=== PATIENT | male | born 1970 | race Caucasian/White ===

== ENCOUNTER 2020-10-25 07:48 | Observation (INO) ==
[2020-10-25] MEDS ORDERED: 0.9 % Sodium Chloride 1,000 ML IVC ONE (08:05)
[2020-10-25] MEDS ORDERED: Isovue-370 500 ML BOTTLE IVP ONE (08:06)
[2020-10-25 08:40] LABS: Basophils # 0.1 K/mcL (0.0-0.2); Basophils % 0.6 %; Eosinophils % 0.3 %; Hemoglobin 13.3 g/dL (12.9-16.9); Immature Granulocytes % 0.4 % (0-4); Lymphocytes # 0.8 K/mcL (0.6-4.6); Lymphocytes % 8.8 %; Mean Corpuscular HGB Conc 34.1 g/dL (31.6-35.5); Mean Corpuscular Hemoglobin 30.6 pg (28.0-33.3); Mean Corpuscular Volume 89.9 fL (83.0-100.0); Mean Platelet Volume 8.8 fL (9.4-12.4); Monocytes % 10.9 %; Neutrophils # 7.1 K/mcL (1.6-8.9); Platelet Count 502 K/mcL (140-400); Red Blood Count 4.34 M/mcL (4.19-5.50); Red Cell Distribution Width 12.5 % (11.5-14.5)
[2020-10-25 09:08] LABS: Alanine Aminotransferase 49 Units/L (7-52); Albumin 4.4 g/dL (3.5-5.7); Albumin/Globulin Ratio 1.5 (1.1-2.2); Alkaline Phosphatase 85 Units/L (34-104); Aspartate Amino Transferase 27 Units/L (13-39); BUN/Creatinine Ratio 24 (6-26); Bilirubin,Direct 0.2 mg/dL (0.0-0.2); Bilirubin,Indirect 1.1 mg/dL (0.0-1.0); Bilirubin,Total 1.3 mg/dL (0.3-1.0); Blood Urea Nitrogen 27 mg/dL (6-20); Calcium 9.7 mg/dL (8.6-10.3); Carbon Dioxide 26 mEq/L (23-29); Chloride 92 mEq/L (98-107); Globulin 2.9 g/dL (2.4-3.5); Glucose 127 mg/dL (70-105); Lipase 23 Units/L (11-82); Osmolality,Calculated 279 (280-300); Potassium 3.6 mEq/L (3.5-5.1); Sodium 131 mEq/L (136-145); Total Protein 7.3 g/dL (6.4-8.9); Troponin I < 0.03 ng/mL (< 0.04); eGFR For African Americans > 60 (> 60); eGFR For Non-African Americans > 60 (> 60)
[2020-10-25] MEDS ORDERED: *HR* FentaNYL (PF) 100 MCG/2 ML VIAL IVP ONE ×2 (09:08→11:12)
[2020-10-25 11:36] LABS: Bilirubin,Urine Negative (Negative); Blood,Urine Trace (Negative); Clarity,Urine Clear (Clear); Color,Urine Yellow (Yellow); Glucose,Urine (UA) Normal (Normal); Ketones,Urine 60 mg/dL (Negative); Leukocyte Esterase,Urine Negative (Negative); Mucus,Urine Moderate per lpf (None-Few); Nitrite,Urine Negative (Negative); Protein,Urine 50 mg/dL (Neg-Trace); Specific Gravity,Urine > 1.030 (1.010-1.025); Urobilinogen,Urine Normal (Normal); WBC,Urine 0-3 per hpf (0-3)
[2020-10-25] MEDS ORDERED: Ondansetron 4 MG/2 ML VIAL IVP PRN (12:56)
[2020-10-25] MEDS ORDERED: Naloxone 0.4 MG/ML INJ IVP PRN (12:56)
[2020-10-25] MEDS ORDERED: Mag Hydrox/Al Hydrox/Simeth 30 ML UDC PO PRN (12:56)
[2020-10-25] MEDS: 0.9 % Sodium Chloride 1,000 ML IVC SCH (13:51)
[2020-10-25] MEDS: Ketorolac 30 MG/ML VIAL IVP PRN ×2 (13:55→20:10)
[2020-10-25] MEDS ORDERED: Ondansetron 4 MG/2 ML VIAL IVP ONE (15:54)
[2020-10-26] MEDS: 0.9 % Sodium Chloride 1,000 ML IVC SCH (02:11)
[2020-10-26] MEDS: Ketorolac 30 MG/ML VIAL IVP PRN ×3 (02:11→20:50)
[2020-10-26 05:44] LABS: Hematocrit 34.9 % (37.5-50.1); Hemoglobin 11.9 g/dL (12.9-16.9); Mean Corpuscular HGB Conc 34.1 g/dL (31.6-35.5); Mean Corpuscular Hemoglobin 30.9 pg (28.0-33.3); Mean Corpuscular Volume 90.6 fL (83.0-100.0); Mean Platelet Volume 9.1 fL (9.4-12.4); Platelet Count 456 K/mcL (140-400); Red Blood Count 3.85 M/mcL (4.19-5.50); Red Cell Distribution Width 12.7 % (11.5-14.5); White Blood Count 10.5 K/mcL (4.3-11.1)
[2020-10-26 06:01] LABS: Alanine Aminotransferase 38 Units/L (7-52); Albumin 3.8 g/dL (3.5-5.7); Albumin/Globulin Ratio 1.4 (1.1-2.2); Alkaline Phosphatase 79 Units/L (34-104); Aspartate Amino Transferase 21 Units/L (13-39); BUN/Creatinine Ratio 31 (6-26); Blood Urea Nitrogen 35 mg/dL (6-20); Calcium 8.8 mg/dL (8.6-10.3); Carbon Dioxide 27 mEq/L (23-29); Chloride 96 mEq/L (98-107); Globulin 2.8 g/dL (2.4-3.5); Glucose 106 mg/dL (70-105); Osmolality,Calculated 286 (280-300); Potassium 3.4 mEq/L (3.5-5.1); Sodium 134 mEq/L (136-145); Total Protein 6.6 g/dL (6.4-8.9); eGFR For African Americans > 60 (> 60); eGFR For Non-African Americans > 60 (> 60)
[2020-10-26] MEDS: Acetaminophen 325 MG TABLET PO PRN (19:04)
[2020-10-26] MEDS ORDERED: Melatonin 3 MG TABLET PO PRN (19:10)
[2020-10-26] MEDS: Gabapentin 300 MG CAPSULE PO SCH (20:48)
[2020-10-27 05:47] LABS: Hematocrit 37.9 % (37.5-50.1); Hemoglobin 12.6 g/dL (12.9-16.9); Mean Corpuscular HGB Conc 33.2 g/dL (31.6-35.5); Mean Corpuscular Hemoglobin 30.6 pg (28.0-33.3); Mean Platelet Volume 8.9 fL (9.4-12.4); Platelet Count 514 K/mcL (140-400); Red Blood Count 4.12 M/mcL (4.19-5.50); Red Cell Distribution Width 12.7 % (11.5-14.5); White Blood Count 10.8 K/mcL (4.3-11.1)
[2020-10-27 07:57] LABS: BUN/Creatinine Ratio 21 (6-26); Blood Urea Nitrogen 24 mg/dL (6-20); Calcium 9.2 mg/dL (8.6-10.3); Carbon Dioxide 28 mEq/L (23-29); Chloride 98 mEq/L (98-107); Glucose 99 mg/dL (70-105); Osmolality,Calculated 284 (280-300); Potassium 3.6 mEq/L (3.5-5.1); Sodium 135 mEq/L (136-145); eGFR For African Americans > 60 (> 60); eGFR For Non-African Americans > 60 (> 60)
[2020-10-27] MEDS: Acetaminophen 325 MG TABLET PO PRN (08:54)
[2020-10-27] MEDS: Gabapentin 300 MG CAPSULE PO SCH ×2 (08:54→16:54)
[2020-10-27] MEDS ORDERED: lisinopriL 20 MG TABLET PO SCH (09:00)
[2020-10-27] MEDS ORDERED: Gadolinium Contrast Agent (WT Based) IV PRN (10:15)
[2020-10-27 14:35] VITALS: BP 129/85
== END 2020-10-27 17:21 | disposition home or self-care (01) ==
LOC: 3ANU 07:48 → EMEROOARM 07:48 → SUATTDRO 12:11 → 3ANU 14:00
PROVIDERS: ADMIT Internal Medicine; ATTEND Internal Medicine